=== PATIENT | female | born 1985 | race Caucasian/White ===

== ENCOUNTER 2021-12-09 17:30 | Emergency (ER) | payer OTHER ==
[~2021-12-09] VITALS: Ht 157.5 cm; Wt 61.2 kg
[2021-12-09 17:50] VITALS: BP 124/100
--- NOTE | 2021-12-09 17:59 | NUR ---
TENT 1.
[2021-12-09 18:45] LABS: BASOPHILS # (AUTO) 0.1 K/uL (0.00-0.22); EOSINOPHILS # (AUTO) 0.2 K/uL (0-0.4); EOSINOPHILS % (AUTO) 3.4 % (0.0-4.0); HEMATOCRIT 42.3 % (36-48); HEMOGLOBIN 14.5 g/dL (12.0-16.0); LYMPHOCYTES # (AUTO) 2.3 K/uL (2.5-16.5); LYMPHOCYTES % (AUTO) 35.8 % (20.5-51.1); MEAN CORPUSCULAR HEMOGLOBIN 31 pg (27-31); MEAN CORPUSCULAR HGB CONC 34 g/dL (33-37); MONOCYTES # (AUTO) 0.6 K/uL (0.8-1.0); MONOCYTES % (AUTO) 10.2 % (1.7-9.3); NEUTROPHILS # (AUTO) 3.2 K/uL (1.8-7.7); NEUTROPHILS % (AUTO) 49.6 % (42.2-75.2); PLATELET COUNT (AUTO) 477 K/uL (140-450); RED BLOOD CELL COUNT(AUTO) 4.75 MIL/uL (4.20-5.40); RED CELL DISTRIBUTION WIDTH 11.9 % (11.6-13.7); WHITE BLOOD COUNT (AUTO) 6.4 K/uL (4.8-10.8)
--- NOTE | 2021-12-09 18:58 | NUR ---
PT AMB TO BED 1.
[2021-12-09 19:08] LABS: APPEARANCE,URINE CLEAR (CLEAR); BILIRUBIN,URINE 1+ (NEGATIVE); BLOOD, URINE NEGATIVE (NEGATIVE); COLOR,URINE YELLOW (YELLOW); LEUKOCYTE ESTERASE ,URINE NEGATIVE (NEGATIVE); NITRITE, URINE NEGATIVE (NEGATIVE); PH,URINE 6.5 (5.0-9.0); UGLUCOSE NEGATIVE (NEGATIVE)
[2021-12-09] MEDS ORDERED: NACL 0.9% 2,000 ML IV ONE (19:10)
[2021-12-09] MEDS ORDERED: ONDANSETRON 4 MG/2 ML VIAL IVP ONE (19:10)
[2021-12-09] MEDS ORDERED: KETOROLAC 30 MG/ML VIAL IVP ONE (19:10)
--- NOTE | 2021-12-09 19:22 | NUR ---
DR. KLEIN EVALUATING PATIENT AT BEDSIDE.
--- NOTE | 2021-12-09 19:28 | NUR ---
Pt report given to MARTHA STROUD. Transfer of care at this time.
[2021-12-09] MEDS ORDERED: FAMOTIDINE 20 MG/2 ML VIAL IVP ONE (19:30)
[2021-12-09] MEDS ORDERED: ONDA-188 PO (22:14)
[2021-12-09] MEDS ORDERED: BEN10 PO (22:14)
[2021-12-09] MEDS ORDERED: ACET-10509 PO (22:14)
[2021-12-09] MEDS ORDERED: MORPHINE SULFATE 4 MG/ML SYR IVP ONE (22:40)
[2021-12-09 23:57] LABS: ANION GAP 18.5 (8-16); CARBON DIOXIDE 21.8 mmol/L (21-32); POTASSIUM 3.3 mmol/L (3.5-5.1)
[2021-12-10] MEDS ORDERED: ONDANSETRON 4 MG/2 ML VIAL IVP ONE (00:20)
[2021-12-10] MEDS ORDERED: POTASSIUM CHLORIDE 10 MEQ TABER PO ONE (00:20)
[2021-12-10 00:47] VITALS: BP 125/82
--- NOTE | 2021-12-10 00:48 | NUR ---
Patient discharged with v/s stable. Written and verbal after care instructions given and explained. Patient verbalized understanding. Ambulatory with steady gait. All questions addressed prior to discharge. Advised to follow up with PMD. Addendum: 12/10/21 at 0048 by [id number] Patient discharged with v/s stable. Written and verbal after care instructions given and explained. Patient verbalized understanding. Ambulatory with steady gait. All questions addressed prior to discharge. Patient left with her friend. Advised to follow up with PMD.
--- NOTE | 2021-12-12 19:30 | NUR ---
LATE ENTRY. NS 0.9% BOLUS ENDED AT 2200 ON 12/09/21
== END 2021-12-10 00:32 | disposition home or self-care (01) ==
LOC: MED 17:30
DX: U07.1 COVID-19 (principal); R10.33 Periumbilical pain; K21.9 Gastro-esophageal reflux disease without esophagitis; Z79.899 Other long term (current) drug therapy
CPT/HCPCS: 36415; 74176; 80053; 81003; 81025; 83690; 85025; 96361; 96374; 96375; 96376; 99285; J1885; J2270; J2405; J3490; J7030

== ENCOUNTER 2021-12-15 02:46 | Emergency (ER) | payer OTHER ==
[~2021-12-15] VITALS: Ht 157.5 cm; Wt 61.2 kg
[~2021-12-15 02:46] MED LIST: ACET-10509 PO; BEN10 PO; ONDA-188 PO
[2021-12-15 02:52] VITALS: BP 133/100
--- NOTE | 2021-12-15 02:52 | NUR ---
to bed ambulatory
--- NOTE | 2021-12-15 03:02 | NUR ---
PT PROVIDED URINE
--- NOTE | 2021-12-15 03:03 | NUR ---
36 y/o female bibs from home, c/o abd pain, n/v for 9 days, tested covid positive last saturday. no cyanosis, sob, cp, or accesory muscle use. a/ox4, unlabored breathing, ambulatory. no pmh all: cephalexin
[2021-12-15] MEDS ORDERED: ONDANSETRON 4 MG/2 ML VIAL IVP ONE (03:20)
[2021-12-15] MEDS ORDERED: NACL 0.9% 1,000 ML IV ONE (03:20)
--- NOTE | 2021-12-15 03:53 | NUR ---
SHOE SALESMAN AT BEDSIDE
--- NOTE | 2021-12-15 04:24 | NUR ---
pt returned from ct
[2021-12-15 04:34] LABS: ALBUMIN 3.9 g/dL (3.4-5.0); ANION GAP 16.9 (8-16); CARBON DIOXIDE 17.7 mmol/L (21-32); CREATININE 1.3 mg/dL (0.6-1.3); POTASSIUM 3.6 mmol/L (3.5-5.1); TOTAL BILIRUBIN 2.3 mg/dL (0.0-1.0)
[2021-12-15 04:51] LABS: BASOPHILS # (AUTO) 0.1 K/uL (0.00-0.22); BASOPHILS % (AUTO) 1.1 % (0.0-2.0); EOSINOPHILS # (AUTO) 0.2 K/uL (0-0.4); EOSINOPHILS % (AUTO) 1.8 % (0.0-4.0); HEMATOCRIT 42.3 % (36-48); HEMOGLOBIN 14.8 g/dL (12.0-16.0); LYMPHOCYTES # (AUTO) 2.5 K/uL (2.5-16.5); MEAN CORPUSCULAR HEMOGLOBIN 31 pg (27-31); MEAN CORPUSCULAR HGB CONC 35 g/dL (33-37); MEAN CORPUSCULAR VOLUME 88.4 fL (80-94); MONOCYTES # (AUTO) 0.7 K/uL (0.8-1.0); MONOCYTES % (AUTO) 7.4 % (1.7-9.3); NEUTROPHILS # (AUTO) 5.6 K/uL (1.8-7.7); NEUTROPHILS % (AUTO) 61.7 % (42.2-75.2); PLATELET COUNT (AUTO) 513 K/uL (140-450); RED BLOOD CELL COUNT(AUTO) 4.78 MIL/uL (4.20-5.40)
--- NOTE | 2021-12-15 07:19 | NUR ---
GAVE TRANSFER OF CARE REPORT TO MARTHA LEHMAN
--- NOTE | 2021-12-15 07:23 | NUR ---
ASSUMED PATIENT CARE, CONCUR TO PRIOR NURSING ASSESSMENT.
[2021-12-15] MEDS ORDERED: diphenhydrAMINE 50 MG/ML VIAL IVP ONE (07:50)
[2021-12-15] MEDS ORDERED: METOCLOPRAMIDE 10 MG/2 ML INJ VIAL IVP ONE (07:50)
[2021-12-15] MEDS ORDERED: MECL-303 PO (07:51)
[2021-12-15] MEDS ORDERED: METO-485 PO (07:51)
[2021-12-15] MEDS ORDERED: MAG355OR2 PO (07:51)
--- NOTE | 2021-12-15 08:30 | NUR ---
Patient discharged with v/s stable. Written and verbal after care instructions given and explained. Patient verbalized understanding. Ambulatory with steady gait. All questions addressed prior to discharge. Advised to follow up with PMD.
[2021-12-15 08:31] VITALS: BP 125/65
== END 2021-12-15 08:30 | disposition home or self-care (01) ==
LOC: MED 02:46
DX: R10.84 Generalized abdominal pain (principal); Z20.822 Contact with and (suspected) exposure to COVID-19; R11.2 Nausea with vomiting, unspecified; K21.9 Gastro-esophageal reflux disease without esophagitis; Z88.1 Allergy status to other antibiotic agents
CPT/HCPCS: 36415; 74176; 80053; 81002; 81025; 83605; 85025; 87426; 96361; 96374; 96375; 99285; J1200; J2405; J2765; J7030